=== PATIENT | male | born 1980 | race Caucasian/White ===

== ENCOUNTER 2017-03-16 19:30 | Emergency (ER) | payer OTHER ==
[2017-03-16 19:42] VITALS: TEMP 98.6; BMI 29.0
--- NOTE | 2017-03-16 21:08 | PDOC ---
History of Present Illness - General History Source: Patient <Milton Banegas - Last Filed: 03/16/17 22:53> - General History Source: Patient, Old Records Exam Limitations: No Limitations - History of Present Illness Initial Comments: 03/16/17 21:22 The patient is a 36 year old male with no significant past medical history, who presents to the emergency department today with throat pain for several weeks. The patient notes that when he swallows he feels like his head is squeezing and like he needs to vomit. He also notes that when he eats he feels like food gets stuck but denies any choking episodes. PAST MEDICAL HISTORY: No significant history reported PAST SURGICAL HISTORY: No significant history reported FAMILY HISTORY: No pertinent history reported SOCIAL HISTORY: None reported ALLERGIES: As per nursing notes MEDICATIONS: Reviewed <Leif Henderson - Last Filed: 03/16/17 22:58> - General Chief Complaint: Nausea/Vomiting Stated Complaint: NAUSEA/VOMITING Time Seen by Provider: 03/16/17 19:36 Past History - Past Medical History GI Disorders: Yes - Psycho/Social/Smoking Cessation Hx Anxiety: No Suicidal Ideation: No Smoking Status: Yes Smoking History: Never smoked Have you smoked in the past 12 months: No Number of Cigarettes Smoked Daily: 0 Hx Alcohol Use: No Substance Use Type: None <Milton Banegas - Last Filed: 03/16/17 22:53> <Leif Henderson - Last Filed: 03/16/17 22:58> - Past Medical History Allergies/Adverse Reactions: Allergies Allergy/AdvReac Type Severity Reaction Status Date / Time No Known Allergies Allergy Verified 03/16/17 19:39 Home Medications: Ambulatory Orders Ondansetron [Zofran *Odt*] 4 mg SL TID #30 od.tablet 03/16/17 Pantoprazole Sodium [Protonix] 40 mg PO DAILY 03/16/17 Review of Systems - Review of Systems Able to Perform ROS?: Yes Comments:: 03/16/17 21:22 CONSTITUTIONAL: Absent: fever, chills, diaphoresis, generalized weakness, malaise, loss of appetite HEENT: Present: Throat pain, difficulty swallowing. Absent: rhinorrhea, nasal congestion, throat swelling, mouth swelling, ear pain , eye pain, visual Changes CARDIOVASCULAR: Absent: chest pain, syncope, palpitations, irregular heart rate, lightheadedness , peripheral edema RESPIRATORY: Absent: cough, shortness of breath, dyspnea with exertion, orthopnea, wheezing, stridor, hemoptysis GASTROINTESTINAL: Absent: abdominal pain, abdominal distension, nausea, vomiting, diarrhea, constipation, melena, hematochezia GENITOURINARY: Absent: dysuria, frequency, urgency, hesitancy, hematuria, flank pain, genital pain MUSCULOSKELETAL: Absent: myalgia, arthralgia, joint swelling SKIN: Absent: rash, itching, pallor HEMATOLOGIC/IMMUNOLOGIC: Absent: easy bleeding, easy bruising, lymphadenopathy, frequent infections ENDOCRINE: Absent: unexplained weight gain, unexplained weight loss, heat intolerance, cold intolerance NEUROLOGIC: Present: Head squeezing Absent: Focal weakness or paresthesias, dizziness, unsteady gait, seizure, mental status changes, bladder or bowel incontinence PSYCHIATRIC: Absent: anxiety, depression, suicidal or homicidal ideation, hallucinations. <Leif Henderson - Last Filed: 03/16/17 22:58> *Physical Exam - Vital Signs Last Vital Signs Temp Pulse Resp BP Pulse Ox 98.6 F 78 18 126/78 99 03/16/17 19:41 03/16/17 19:41 03/16/17 19:41 03/16/17 19:41 03/16/17 19:41 <Milton Banegas - Last Filed: 03/16/17 22:53> - Vital Signs Last Vital Signs Temp Pulse Resp BP Pulse Ox 98.6 F 78 18 126/78 99 03/16/17 19:41 03/16/17 19:41 03/16/17 19:41 03/16/17 19:41 03/16/17 19:41 - Physical Exam Comments: 03/16/17 21:23 GENERAL: Well developed, well nourished. Awake and alert. In no acute distress. HEENT: (+) Normocephalic, atraumatic. PERRLA, EOMI. No conjunctival pallor. Sclerae are non-icteric.Mild erythema of posterior oropharynx NECK: Supple. Full ROM. No JVD. Carotid pulses 2+ and symmetric, without bruits. No thyromegaly. No lymphadenopathy. CARDIOVASCULAR: Regular rate and rhythm. No murmurs, rubs, or gallops. Distal pulses are 2+ and symmetric. PULMONARY: No evidence of respiratory distress. Lungs clear to auscultation bilaterally. No wheezing, rales or rhonchi. ABDOMINAL: Soft. Non-tender. Non-distended. No rebound or guarding. No organomegaly. Normoactive bowel sounds. MUSCULOSKELETAL Normal range of motion at all joints. No bony deformities or tenderness. No CVA tenderness. EXTREMITIES: No cyanosis. No clubbing. No edema. No calf tenderness. SKIN: Warm and dry. Normal capillary refill. No rashes. No jaundice. NEUROLOGICAL: Alert, awake, appropriate. Cranial nerves 2-12 intact. No deficits to light touch and temperature in face, upper extremities and lower extremities. No motor deficits in the in face, upper extremities and lower extremities. Normoreflexic in the upper and lower extremities. Normal speech. Toes are downgoing bilaterally. Gait is normal without ataxia. PSYCHIATRIC: Cooperative. Good eye contact. Appropriate mood and affect. <Leif Henderson - Last Filed: 03/16/17 22:58> ED Treatment Course - RADIOLOGY Radiograph Interpretation: 03/16/17 22:51 EXAM#: TYPE/EXAM: RESULT: [id number] CT/HEAD CT WITHOUT CONTRAST Cranial CT without contrast Clinical information: dizziness No intracranial hemorrhage is seen. There is no discrete infarct within the limitations of CT. No obvious mass lesion is noted on noncontrast imaging. A 2 mm calcification is seen along the right frontal lobe which is probably subarachnoid in location consistent most suggestive of postinflammatory/postinfectious change. There is no extra- axial fluid collection. The ventricles and cisterns appear unremarkable. The mastoid air cells and partially imaged paranasal sinuses demonstrate no opacification or Impression: No CT evidence of acute intracranial pathology. A small right frontal calcification is seen probably on a postinflammatory/ postinfectious basis. Reported By: Deion Rivera MD 03/16/17 2237 03/16/17 22:57 EXAM: CT SOFT TISSUE NECK. Impression: Official report pending. <Leif Henderson - Last Filed: 03/16/17 22:58> Medical Decision Making - Medical Decision Making 03/16/17 22:57 Dr. Banegas: The scribe's documentation has been prepared under my direction and personally reviewed by me in its entirery. I confirm that the note above accurately reflects all work, treatment, procedures, and medical decision making performed by me. <Milton Banegas - Last Filed: 03/16/17 22:53> *DC/Admit/Observation/Transfer - Discharge Dispostion Admit: No <Milton Banegas - Last Filed: 03/16/17 22:53> - Attestations Scribe Attestion: 03/16/17 21:23 Documentation prepared by Leif Henderson, acting as medical coding auditor for Milton Banegas DO. <Leif Henderson - Last Filed: 03/16/17 22:58> Diagnosis at time of Disposition: Dysphagia - Discharge Dispostion Disposition: HOME Condition at time of disposition: Stable - Prescriptions Prescriptions: Ondansetron [Zofran *Odt*] 4 mg SL TID #30 od.tablet - Referrals Referrals: Jaiden Junior MD [Staff Physician] - - Patient Instructions Printed Discharge Instructions: DI for Nausea -- Adult, DI for Vomiting -- Adult Additional Instructions: Please follow up with the GI specialist for an endoscopy. Take medication as directed. Print Language: IRANIAN
[2017-03-16 23:05] VITALS: BP 121/71; PULSE 62
== END 2017-03-16 23:04 | disposition home or self-care (01) ==
LOC: JER 19:30
DX: R13.19 Other dysphagia (principal)
CPT/HCPCS: 70360-TC; 70450-TC; 99282-25

== ENCOUNTER 2017-09-22 00:32 | Emergency (ER) | payer OTHER ==
[2017-09-22 00:48] VITALS: BP 122/82; PULSE 94; TEMP 98.6; BMI 29.6
--- NOTE | 2017-09-22 01:02 | PDOC ---
History of Present Illness - General Chief Complaint: Pain, Acute Stated Complaint: ABD PAIN Time Seen by Provider: 09/22/17 00:38 History Source: Patient Exam Limitations: No Limitations - History of Present Illness Initial Comments: 09/22/17 01:09 Patient is a 37-year-old male with past medical history of GERD, who presents emergency department tonight complaining of left-sided abdominal/flank pain. Patient states symptoms began on Thursday. He states that the pain is colicky in nature. It radiates down to his left groin. Admits to subjective fevers, chills, nausea and vomiting. He has not taken any medication for his pain. This has never happened to him before. Denies cold-like symptoms, shortness of breath , chest pain, frequency, urgency, hematuria, diarrhea, hematemesis. Past History - Travel Traveled outside of the country in the last 30 days: No Close contact w/someone who was outside of country & ill: No - Past Medical History Allergies/Adverse Reactions: Allergies Allergy/AdvReac Type Severity Reaction Status Date / Time No Known Allergies Allergy Verified 09/22/17 00:47 Home Medications: Ambulatory Orders Ondansetron [Zofran *Odt*] 4 mg SL TID #30 od.tablet 03/16/17 Pantoprazole Sodium [Protonix] 40 mg PO DAILY 03/16/17 GI Disorders: Yes - Suicide/Smoking/Psychosocial Hx Smoking Status: Yes Smoking History: Never smoked Have you smoked in the past 12 months: No Number of Cigarettes Smoked Daily: 0 Information on smoking cessation initiated: No Hx Alcohol Use: No Drug/Substance Use Hx: No Substance Use Type: None Review of Systems - Review of Systems Able to Perform ROS?: Yes Comments:: 09/22/17 01:21 CONSTITUTIONAL: Present: subjective fevers, chills Absent: diaphoresis, generalized weakness, malaise, loss of appetite HEENT: Absent: rhinorrhea, nasal congestion, throat pain, throat swelling, difficulty swallowing, mouth swelling, ear pain, eye pain, visual Changes CARDIOVASCULAR: Absent: chest pain, loss of consciousness, palpitations, irregular heart rate, peripheral edema RESPIRATORY: Absent: cough, shortness of breath, dyspnea with exertion, orthopnea, wheezing, stridor, hemoptysis GASTROINTESTINAL: Present: LLQ pain, flank pain, nausea/vomiting. Absent: abdominal distension, diarrhea, constipation, melena, hematochezia GENITOURINARY: Absent: dysuria, frequency, urgency, hesitancy, hematuria, flank pain, genital pain MUSCULOSKELETAL: Absent: myalgia, arthralgia, joint swelling SKIN: Absent: rash, itching, pallor HEMATOLOGIC/IMMUNOLOGIC: Absent: easy bleeding, easy bruising, lymphadenopathy, frequent infections ENDOCRINE: Absent: unexplained weight gain, unexplained weight loss, heat intolerance, cold intolerance NEUROLOGIC: Absent: headache, focal weakness or paresthesias, dizziness, unsteady gait, seizure, mental status changes, bladder or bowel incontinence PSYCHIATRIC: Absent: anxiety, depression, suicidal or homicidal ideation, hallucinations. Is the patient limited Ghanaian proficient: No *Physical Exam - Vital Signs Last Vital Signs Temp Pulse Resp BP Pulse Ox 98.6 F 94 H 18 122/82 98 09/22/17 00:47 09/22/17 00:47 09/22/17 00:47 09/22/17 00:47 09/22/17 00:47 - Physical Exam Comments: 09/22/17 01:22 GENERAL: Well developed, well nourished. Awake and alert x3. In mild distress laying on bed. Breathing easily, not using accessory muscles to breathe. HEENT: Normocephalic, atraumatic. PERRLA, EOMI. No conjunctival pallor. Sclera are non- icteric. Moist mucous membranes. Oropharynx is clear. NECK: Supple. Full ROM. No JVD. Carotid pulses 2+ and symmetric, without bruits. No thyromegaly. No lymphadenopathy. CARDIOVASCULAR: Regular rate and rhythm. No murmurs, rubs, or gallops. Distal pulses are 2+ and symmetric. PULMONARY: No evidence of respiratory distress. Lungs clear to auscultation bilaterally. No wheezing, rales or rhonchi. ABDOMINAL: TTP of the LLQ, L flank. Soft. Non-distended. No rebound or guarding. No organomegaly. Normoactive bowel sounds. MUSCULOSKELETAL Normal range of motion at all joints. No bony deformities or tenderness. No CVA tenderness. EXTREMITIES: No cyanosis. No clubbing. No edema. No calf tenderness. SKIN: Warm and dry. Normal capillary refill. No rashes. No jaundice. NEUROLOGICAL: Alert, awake, appropriate. Cranial nerves 2-12 intact. No deficits to light touch and temperature in face, upper extremities and lower extremities. No motor deficits in the in face, upper extremities and lower extremities. Normoreflexic in the upper and lower extremities. Normal speech. Toes are down- going bilaterally. Gait is normal without ataxia. PSYCHIATRIC: Cooperative. Good eye contact. Appropriate mood and affect. ED Treatment Course - LABORATORY CBC & Chemistry Diagram: 09/22/17 02:00 09/22/17 02:00 Medical Decision Making - Medical Decision Making 09/22/17 02:21 CT exam with no acute findings or stones. Large amount of stool on exam. *DC/Admit/Observation/Transfer Diagnosis at time of Disposition: Abdominal pain Qualifiers: Abdominal location: left lower quadrant Qualified Code(s): R10.32 - Left lower quadrant pain - Discharge Dispostion Disposition: HOME Condition at time of disposition: Good Admit: No - Referrals Referrals: Genaro Krishnan MD [Staff Physician] - Dylan mEery MD [Staff Physician] - - Patient Instructions Printed Discharge Instructions: DI for Abdominal Pain-Adult Additional Instructions: Your CAT scan today was negative for kidney stones. Your blood work was normal. Your urine did not show an infection. Please drink plenty of fluids. He may take Tylenol or Motrin as needed for your abdominal pain. Please follow-up with your primary care doctor this week. If you do not have a primary care doctor a referral has been provided for you. If your stomach pain does not go away please follow-up with Dr. Emery. Return to the emergency department if you have worsening pain, fevers, chills, nausea, vomiting, or any changes in your symptoms. Laguna tomografa computarizada hoy fue negativa para clculos renales. Laguna anlisis de nat fue normal. Tu orina no mostr ashley infeccin. Por favor alice muchos l quidos. l puede jeffrey Tylenol o Motrin segn sea necesario para laguna dolor abdominal. Por favor michael un seguimiento con laguna mdico de atencin primaria esta semana. Si no tiene un mdico de atencin primaria, se le lan proporcionado ashley referencia. Si laguna dolor de estmago no desaparece, michael un seguimiento con el Dr. Emery. Regrese al departamento de emergencias si tiene un empeoramiento del dolor, fiebre, escalofros, nuseas, vmitos o cualquier cambio en nellie sntomas. Print Language: OCCITAN - Post Discharge Activity Forms/Work/School Notes: Back to Work
[2017-09-22] MEDS ORDERED: SODIUM CHLORIDE 1,000 ML IV STA (01:03)
[2017-09-22] MEDS ORDERED: ONDANSETRON 4 MG/2 ML VIAL IVPUSH ONE (01:03)
[2017-09-22] MEDS ORDERED: KETOROLAC TROMETHAMINE 30 MG/1 ML VIAL IVPUSH ONE (01:04)
[2017-09-22] MEDS ORDERED: ONDANSETRON 4 MG/2 ML VIAL ONE (02:12)
[2017-09-22] MEDS ORDERED: KETOROLAC TROMETHAMINE 30 MG/1 ML VIAL ONE (02:12)
[2017-09-22 02:31] LABS: BASO % 0.4 % (0-2.0); EOS % 4.9 % (0-4.5); HEMATOCRIT 44.8 % (35.4-49); HEMOGLOBIN 14.9 GM/dL (11.7-16.9); LYMPH % 22.7 % (8-40); MCH 28.3 pg (25.7-33.7); MCHC 33.2 g/dl (32.0-35.9); MEAN CELL VOLUME 85.4 fl (80-96); MEAN PLT VOLUME 8.6 fl (7.5-11.1); MONO % 9.8 % (3.8-10.2); NEUT % 62.2 % (42.8-82.8); PLATELET COUNT 244 K/MM3 (134-434); RBC 5.25 M/mm3 (4.00-5.60); RDW 13.7 % (11.9-15.9); WHITE BLOOD COUNT 9.1 K/mm3 (4.0-10.0)
[2017-09-22 02:43] LABS: INR 0.95 (0.82-1.09); PROTHROMBIN TIME (PATIENT) 10.7 SEC (9.98-11.88)
[2017-09-22 03:08] LABS: ALBUMIN 3.9 g/dl (3.4-5.0); ALK PHOS 126 U/L (45-117); ANION GAP 10 (8-16); BILIRUBIN,TOTAL 0.2 mg/dL (0.2-1.0); BLOOD UREA NITROGEN 9 mg/dL (7-18); CALCIUM 8.5 mg/dL (8.5-10.1); CHLORIDE 107 mmol/L (98-107); CO2 23 mmol/L (21-32); CREATININE 0.7 mg/dL (0.7-1.3); GLUCOSE,RANDOM 122 mg/dL (74-106); SGOT/AST 22 U/L (15-37); SGPT/ALT 36 U/L (12-78); SODIUM 140 mmol/L (136-145)
[2017-09-22 04:11] LABS: URINE APPEARANCE CLEAR; URINE BILIRUBIN NEGATIVE (NEGATIVE); URINE BLOOD NEGATIVE (NEGATIVE); URINE COLOR LTYELLOW; URINE GLUCOSE (UA) NEGATIVE (NEGATIVE); URINE KETONE NEGATIVE (NEGATIVE); URINE LEUK ESTERASE NEGATIVE (NEGATIVE); URINE NITRITE NEGATIVE (NEGATIVE); URINE PROTEIN NEGATIVE (NEGATIVE); URINE UROBILINOGEN NEGATIVE mg/dL (0.2-1.0)
== END 2017-09-22 05:05 | disposition home or self-care (01) ==
LOC: JER 00:32
PROC: 3E0337Z Introduction of Electrolytic and Water Balance Substance into Peripheral Vein, Percutaneous Approach (ICD-10-PCS; principal; 2017-09-22)
PROC: 3E0333Z Introduction of Anti-inflammatory into Peripheral Vein, Percutaneous Approach (ICD-10-PCS; 2017-09-22)
PROC: 3E033GC Introduction of Other Therapeutic Substance into Peripheral Vein, Percutaneous Approach (ICD-10-PCS; 2017-09-22)
DX: R10.32 Left lower quadrant pain (principal)
CPT/HCPCS: 36415; 74176; 80053; 81003; 83690; 85025; 85610; 87086; 96361; 96374; 96375; 99283-25

== ENCOUNTER 2018-09-16 23:24 | Emergency (ER) | payer OTHER ==
[2018-09-17 00:19] VITALS: BP 125/89; PULSE 81; TEMP 98.1; BMI 30.7
[2018-09-17] MEDS ORDERED: FAMOTIDINE 20 MG/50 ML IVPB 20 MG/50 ML MG IVPB ONE (01:01)
--- NOTE | 2018-09-17 01:01 | PDOC ---
History of Present Illness - General Chief Complaint: Nausea/Vomiting Stated Complaint: NAUSEA/VOMITING Time Seen by Provider: 09/17/18 00:43 History Source: Patient - History of Present Illness Initial Comments: 09/17/18 02:54 38 year old with abdominal pain epigastric / left sided pain x 2 years, patient reports seeing GI for this and is prescribed protonix. patient reports that he frequently vomiting after his meal due to intolerance. patient denies chest pain, shortness of breathing, diarrhea, fever chills,. pmhx. Chronic abdominal pain Past History - Past Medical History Allergies/Adverse Reactions: Allergies Allergy/AdvReac Type Severity Reaction Status Date / Time No Known Allergies Allergy Verified 09/17/18 00:14 Home Medications: Ambulatory Orders Ondansetron [Zofran *Odt*] 4 mg SL TID #30 od.tablet 03/16/17 Pantoprazole Sodium [Protonix] 40 mg PO DAILY 03/16/17 COPD: No GI Disorders: Yes - Immunization History Immunization Up to Date: Yes - Suicide/Smoking/Psychosocial Hx Smoking Status: Yes Smoking History: Never smoked Have you smoked in the past 12 months: No Number of Cigarettes Smoked Daily: 0 Information on smoking cessation initiated: No Hx Alcohol Use: No Drug/Substance Use Hx: No Substance Use Type: None Review of Systems - Review of Systems Able to Perform ROS?: Yes Is the patient limited Namibian proficient: No ABD/GI: Yes: Nausea, Abdominal cramping *Physical Exam - Vital Signs Last Vital Signs Temp Pulse Resp BP Pulse Ox 98.1 F 81 18 125/89 98 09/16/18 23:30 09/16/18 23:30 09/16/18 23:30 09/16/18 23:30 09/16/18 23:30 - Physical Exam General Appearance: Yes: Appropriately Dressed Respiratory/Chest: positive: Lungs Clear, Normal Breath Sounds Gastrointestinal/Abdominal: positive: Normal Bowel Sounds, Tender (LLQ), Soft Musculoskeletal: negative: CVA Tenderness Extremity: positive: Normal Capillary Refill, Normal Inspection Integumentary: positive: Normal Color, Dry, Warm Neurologic: positive: Fully Oriented, Alert, Normal Mood/Affect Moderate Sedation - Procedure Monitoring Vital Signs: Procedure Monitoring Vital Signs Temperature 98.1 F 09/16/18 23:30 Pulse Rate 81 09/16/18 23:30 Respiratory Rate 18 09/16/18 23:30 Blood Pressure 125/89 09/16/18 23:30 O2 Sat by Pulse Oximetry (%) 98 09/16/18 23:30 ED Treatment Course - LABORATORY CBC & Chemistry Diagram: 09/17/18 01:24 09/17/18 01:24 Medical Decision Making - Medical Decision Making 09/17/18 03:05 patient is c/o left flank pain radiating to left abdomen. will spiral CT r/o renal stones. UA negative 09/17/18 03:[address] L: Negative for right or left urinary tract stone or obstruction. No bowel obstruction or inflammation. Negative for diverticulitis or colitis. Normal appendix. There is contrast in the colon from prior contrast study. Normal liver. No obvious gallbladder abnormalities. Normal spleen. Normal pancreas. *DC/Admit/Observation/Transfer Diagnosis at time of Disposition: Abdominal pain Qualifiers: Abdominal location: left lower quadrant Qualified Code(s): R10.32 - Left lower quadrant pain - Discharge Dispostion Disposition: HOME - Referrals Referrals: Xu Rivas MD [Primary Care Provider] - Jaiden Junior MD [Staff Physician] - Call tomorrow - Patient Instructions Printed Discharge Instructions: DI for Nausea -- Adult Additional Instructions: drink plenty of fluids follow up with your human resources trainee as soon as possible - Post Discharge Activity
[2018-09-17] MEDS ORDERED: ONDANSETRON 4 MG/2 ML VIAL ONE (01:15)
[2018-09-17] MEDS ORDERED: ONDANSETRON 4 MG/2 ML VIAL IVPUSH ONE (01:15)
[2018-09-17 01:35] LABS: BASO % 0.4 % (0-2.0); EOS % 4.3 % (0-4.5); HEMATOCRIT 44.8 % (35.4-49); HEMOGLOBIN 15.5 GM/dL (11.7-16.9); LYMPH % 39.5 % (8-40); MCH 29.6 pg (25.7-33.7); MCHC 34.7 g/dl (32.0-35.9); MEAN CELL VOLUME 85.2 fl (80-96); MEAN PLT VOLUME 8.6 fl (7.5-11.1); MONO % 8.4 % (3.8-10.2); NEUT % 47.4 % (42.8-82.8); PLATELET COUNT 243 K/MM3 (134-434); RBC 5.25 M/mm3 (4.00-5.60); RDW 13.9 % (11.9-15.9); WHITE BLOOD COUNT 9.1 K/mm3 (4.0-10.0)
[2018-09-17 01:37] LABS: URINE APPEARANCE CLEAR; URINE BILIRUBIN NEGATIVE (<2.0 mg/dL); URINE COLOR LTYELLOW; URINE GLUCOSE (UA) NEGATIVE (NEGATIVE); URINE KETONE NEGATIVE (NEGATIVE); URINE LEUK ESTERASE NEGATIVE (NEGATIVE); URINE NITRITE NEGATIVE (NEGATIVE); URINE PROTEIN NEGATIVE (NEGATIVE); URINE UROBILINOGEN NEGATIVE mg/dL (0.2-1.0)
[2018-09-17] MEDS ORDERED: ACETAMINOPHEN 325 MG TABLET (FP) PO ONE (02:08)
[2018-09-17] MEDS ORDERED: SUCRALFATE 1 GM TABLET (FP) PO ONE (02:15)
[2018-09-17 02:26] LABS: ALBUMIN 4.3 g/dl (3.4-5.0); ALK PHOS 115 U/L (45-117); ANION GAP 5 MMOL/L (8-16); BILIRUBIN,TOTAL 0.4 mg/dL (0.2-1); BLOOD UREA NITROGEN 10 mg/dL (7-18); CALCIUM 8.6 mg/dL (8.5-10.1); CHLORIDE 106 mmol/L (98-107); CO2 29 mmol/L (21-32); CREATININE 0.9 mg/dL (0.55-1.3); GLUCOSE,RANDOM 97 mg/dL (74-106); LIPASE 149 U/L (73-393); SGOT/AST 20 U/L (15-37); SGPT/ALT 33 U/L (13-61); SODIUM 140 mmol/L (136-145); TOT PROT 7.4 g/dl (6.4-8.2)
[2018-09-17] MEDS ORDERED: ACETAMINOPHEN 325 MG TABLET (FP) ONE (02:33)
[2018-09-17] MEDS ORDERED: SUCRALFATE 1 GM TABLET (FP) ONE (02:34)
--- NOTE | 2018-09-17 09:39 | EKG ---
Test Reason : Blood Pressure : / mmHG Vent. Rate : 071 BPM Atrial Rate : 071 BPM P-R Int : 174 ms QRS Dur : 084 ms QT Int : 382 ms P-R-T Axes : 062 008 026 degrees QTc Int : 415 ms NORMAL SINUS RHYTHM NORMAL ECG NO PREVIOUS ECGS AVAILABLE Confirmed by KENNETH SUN, SHITAL ([id number]) on 09/17/2018 9:39:04 AM Referred By: Confirmed By:SHITAL COOPER MD
== END 2018-09-17 04:09 | disposition home or self-care (01) ==
LOC: JER 23:24
PROC: 3E033GC Introduction of Other Therapeutic Substance into Peripheral Vein, Percutaneous Approach (ICD-10-PCS; principal; 2018-09-16)
DX: R10.32 Left lower quadrant pain (principal); R11.2 Nausea with vomiting, unspecified
CPT/HCPCS: 36415; 74176; 80053; 81003; 83690; 85025; 93005; 93010; 99281-25

== ENCOUNTER 2018-11-17 19:27 | Emergency (ER) | payer OTHER ==
[2018-11-17 19:41] VITALS: BP 129/88; PULSE 78; TEMP 98.2; BMI 29.9
--- NOTE | 2018-11-17 19:42 | PDOC ---
Rapid Medical Evaluation Time Seen by Provider: 11/17/18 19:37 Medical Evaluation: Allergies Allergy/AdvReac Type Severity Reaction Status Date / Time No Known Allergies Allergy Verified 09/17/18 00:14 I have performed a brief in-person evaluation of this patient. The patient presents with a chief complaint of:Hematuria x 2 weeks, no dysuria otherwise. Also reports possible L flank pain of unclear duration. Seen by his pmd Thursday w/ neg urine test per pt. States he had hematuria yrs ago that self resolved. No h/o renal stone . Non-smoker. No unexplained weight loss Pertinent physical exam findings:Stable and well mich I have ordered the following:labs/ua The patient will proceed to the ED for further evaluation. Discharge Disposition - Diagnosis Hematuria Qualifiers: Hematuria type: gross Qualified Code(s): R31.0 - Gross hematuria - Referrals - Patient Instructions - Post Discharge Activity
[2018-11-17 20:08] LABS: BASO % 0.3 % (0-2.0); EOS % 2.6 % (0-4.5); HEMATOCRIT 45.9 % (35.4-49); HEMOGLOBIN 15.7 GM/dL (11.7-16.9); LYMPH % 33.1 % (8-40); MCH 29.7 pg (25.7-33.7); MCHC 34.3 g/dl (32.0-35.9); MEAN CELL VOLUME 86.8 fl (80-96); MEAN PLT VOLUME 8.8 fl (7.5-11.1); PLATELET COUNT 227 K/MM3 (134-434); RBC 5.28 M/mm3 (4.00-5.60); RDW 13.6 % (11.9-15.9); WHITE BLOOD COUNT 11.2 K/mm3 (4.0-10.0)
[2018-11-17 20:33] LABS: URINE APPEARANCE CLOUDY; URINE BILIRUBIN NEGATIVE (<2.0 mg/dL); URINE COLOR AMBER; URINE GLUCOSE (UA) NEGATIVE (NEGATIVE); URINE KETONE NEGATIVE (NEGATIVE); URINE LEUK ESTERASE NEGATIVE (NEGATIVE); URINE NITRITE NEGATIVE (NEGATIVE); URINE PROTEIN 2+ (NEGATIVE); URINE UROBILINOGEN NEGATIVE mg/dL (0.2-1.0)
[2018-11-17 20:34] LABS: ALBUMIN 4.5 g/dl (3.4-5.0); ALK PHOS 106 U/L (45-117); ANION GAP 7 MMOL/L (8-16); BILIRUBIN,TOTAL 0.3 mg/dL (0.2-1); BLOOD UREA NITROGEN 17 mg/dL (7-18); CALCIUM 9.2 mg/dL (8.5-10.1); CHLORIDE 109 mmol/L (98-107); CO2 25 mmol/L (21-32); CREATININE 0.7 mg/dL (0.55-1.3); GLUCOSE,RANDOM 98 mg/dL (74-106); POTASSIUM 3.9 mmol/L (3.5-5.1); SGOT/AST 23 U/L (15-37); SGPT/ALT 43 U/L (13-61); SODIUM 141 mmol/L (136-145); TOT PROT 7.6 g/dl (6.4-8.2)
--- NOTE | 2018-11-17 20:45 | PDOC ---
*Physical Exam - Vital Signs Last Vital Signs Temp Pulse Resp BP Pulse Ox 98.2 F 78 20 129/88 97 11/17/18 19:38 11/17/18 19:38 11/17/18 19:38 11/17/18 19:38 11/17/18 19:38 ED Treatment Course - LABORATORY CBC & Chemistry Diagram: 11/17/18 19:48 11/17/18 19:48 - ADDITIONAL ORDERS Additional order review: Laboratory Results 11/17/18 19:48 Sodium 141 Potassium 3.9 Chloride 109 H Carbon Dioxide 25 Anion Gap 7 L BUN 17 Creatinine 0.7 Creat Clearance w eGFR > 60 Random Glucose 98 Calcium 9.2 Total Bilirubin 0.3 AST 23 ALT 43 Alkaline Phosphatase 106 Total Protein 7.6 Albumin 4.5 11/17/18 19:48 RBC 5.28 MCV 86.8 MCHC 34.3 RDW 13.6 MPV 8.8 Neutrophils % 55.0 Lymphocytes % 33.1 Monocytes % 9.0 Eosinophils % 2.6 Basophils % 0.3 Medical Decision Making - Medical Decision Making 11/17/18 20:45 Patient seen by the advanced practice provider under my direct supervision. Ancillary testing reviewed as necessary. I agree with plan as outlined by the advanced practice provider. *DC/Admit/Observation/Transfer Diagnosis at time of Disposition: Hematuria Qualifiers: Hematuria type: gross Qualified Code(s): R31.0 - Gross hematuria - Discharge Dispostion Disposition: HOME Condition at time of disposition: Stable - Referrals Referrals: Andi Chinchilla MD [Staff Physician] - Xu Rivas MD [Primary Care Provider] - - Patient Instructions Additional Instructions: Your CAT scan today was normal. Your laboratory testing was normal. Continue Levaquin as previously prescribed. You have been given a number for urologist. If symptoms continue please call for reevaluation. Make an appointment to primary doctor for reevaluation. Return to emergency department for any new or worsening symptoms. - Post Discharge Activity
[2018-11-17 20:51] LABS: URINE MUCUS MANY; YEAST MANY
--- NOTE | 2018-11-17 21:08 | PDOC ---
History of Present Illness - General Chief Complaint: Hematuria Stated Complaint: UTI BACK PAIN Time Seen by Provider: 11/17/18 19:37 History Source: Patient Exam Limitations: No Limitations - History of Present Illness Travel History: No Initial Comments: 11/17/18 21:09 HISTORY OF PRESENT ILLNESS: This is a 38-year-old male with past medical history of headaches presents emergency department for evaluation of left flank pain with hematuria which is been ongoing for the past 3 days. Patient was seen and evaluated by his primary doctor on Thursday and was placed on Levaquin 500 mg daily for 2 weeks. Patient reports the pain is been constant today starting in his left flank radiating to his abdomen and into the left testicle. He describes the pain as sharp and rates it 8/10. Patient called his primary doctor and was told to come to the emergency department for reevaluation for potential kidney stone. No recent travel or sick contacts. PAST MEDICAL HISTORY: headaches SURGICAL HISTORY: Denies ALLERGIES: No known drug allergies REVIEW OF SYSTEMS General/Constitutional: Denies fever or chills. Denies weakness, weight change. HEENT: Denies change in vision. Denies ear pain or discharge. Denies sore throat. Cardiovascular: Denies chest pain or shortness of breath. Respiratory: Denies cough, wheezing, or hemoptysis. Gastrointestinal: Denies nausea, vomiting, diarrhea or constipation. Denies rectal bleeding. Genitourinary: see HPI Musculoskeletal: Denies joint or muscle swelling or pain. Denies neck or back pain. Skin and breasts: Denies rash or easy bruising. Neurologic: Denies headache, vertigo, loss of consciousness, or loss of sensation. Psychiatric: Denies depression or anxiety. Endocrine: Denies increased thirst. Denies abnormal weight change. Hematologic/Lymphatic: Denies anemia, easy bleeding, or history of blood clots. Allergic/Immunologic: Denies hives or skin allergy. Denies latex allergy. PHYSICAL EXAM General Appearance: Well-appearing, appropriately dressed. No apparent distress , no intoxication. HEENT: EOMI, PERRLA, normal ENT inspection, normal voice, TMs normal, pharynx normal. No conjunctival pallor. No photophobia, scleral icterus. Neck: Supple. Trachea midline. No tenderness, rigidity, carotid bruit, stridor , lymphadenopathy, or thyromegaly. Respiratory/Chest: Lungs CTAB. No shortness of breath, chest tenderness, respiratory distress, accessory muscle use. No crackles, rales, rhonchi, stridor , wheezing, dullness Cardiovascular: RRR. S1, S2. No JVD, murmur, bradycardia, tachycardia. Vascular Pulses: Dorsalis-Pedis (R): 2+, Dorsalis-Pedis (L): 2+ Gastrointestinal/Abdominal: Normal bowel sounds. Abdomen soft, non-distended. No tenderness or rebound tenderness. No organomegaly, pulsatile mass, guarding, hernia, hepatomegaly, splenomegaly. Lymphatic: No adenopathy, tenderness. Musculoskeletal/Extremities: Normal inspection. FROM of all extremities, normal capillary refill. Pelvis Stable. Left CVA tenderness. No tenderness to extremities, pedal edema, swelling, erythema or deformity. Integumentary: Appropriate color, dry, warm. No cyanosis, erythema, jaundice or rash Neurologic: legal compliance officer II-XII intact. Fully oriented, alert. Appropriate mood/affect. Motor strength 5/5. No appreciable EOM palsy, facial droop or sensory deficit. Past History - Past Medical History Allergies/Adverse Reactions: Allergies Allergy/AdvReac Type Severity Reaction Status Date / Time No Known Allergies Allergy Verified 09/17/18 00:14 Home Medications: Ambulatory Orders Ondansetron [Zofran *Odt*] 4 mg SL TID #30 od.tablet 03/16/17 Pantoprazole Sodium [Protonix] 40 mg PO DAILY 03/16/17 COPD: No GI Disorders: Yes - Immunization History Immunization Up to Date: Yes - Suicide/Smoking/Psychosocial Hx Smoking Status: Yes Smoking History: Never smoked Have you smoked in the past 12 months: No Number of Cigarettes Smoked Daily: 0 Information on smoking cessation initiated: No Hx Alcohol Use: No Drug/Substance Use Hx: No Substance Use Type: None *Physical Exam - Vital Signs Last Vital Signs Temp Pulse Resp BP Pulse Ox 98.2 F 78 20 129/88 97 11/17/18 19:38 11/17/18 19:38 11/17/18 19:38 11/17/18 19:38 11/17/18 19:38 Moderate Sedation - Procedure Monitoring Vital Signs: Procedure Monitoring Vital Signs Temperature 98.2 F 11/17/18 19:38 Pulse Rate 78 11/17/18 19:38 Respiratory Rate 20 11/17/18 19:38 Blood Pressure 129/88 11/17/18 19:38 O2 Sat by Pulse Oximetry (%) 97 11/17/18 19:38 ED Treatment Course - LABORATORY CBC & Chemistry Diagram: 11/17/18 19:48 11/17/18 19:48 - ADDITIONAL ORDERS Additional order review: Laboratory Results 11/17/18 11/17/18 19:48 19:40 Sodium 141 Potassium 3.9 Chloride 109 H Carbon Dioxide 25 Anion Gap 7 L BUN 17 Creatinine 0.7 Creat Clearance w eGFR > 60 Random Glucose 98 Calcium 9.2 Total Bilirubin 0.3 AST 23 ALT 43 Alkaline Phosphatase 106 Total Protein 7.6 Albumin 4.5 Urine Color [place] Urine Appearance Cloudy Urine pH 6.0 Ur Specific [place] 1.027 Urine Protein 2+ H Urine Glucose (UA) Negative Urine Ketones Negative Urine Blood 3+ H Urine Nitrite Negative Urine Bilirubin Negative Urine Urobilinogen Negative Ur Leukocyte Esterase Negative Urine WBC (Auto) 183 Urine RBC (Auto) 5849 Urine Mucus Many Urine Yeast Many 11/17/18 19:48 RBC 5.28 MCV 86.8 MCHC 34.3 RDW 13.6 MPV 8.8 Neutrophils % 55.0 Lymphocytes % 33.1 Monocytes % 9.0 Eosinophils % 2.6 Basophils % 0.3 - RADIOLOGY Radiology Studies Ordered: Category Date Time Status SPIRAL- RENAL-STONE CT [CT] Stat CT Scan 11/17/18 21:07 Ordered Medical Decision Making - Medical Decision Making 11/17/18 21:10 A/P: 38-year-old male with hematuria and intermittent left flank pain for 3 days Left CVA tenderness present Labs collected in rapid medical evaluation are notable for WBC 11.7, Gross hematuria, and 2+ protein Spiral CT to rule out kidney stone 11/18/18 00:41 CT scan is read by imaging polymer materials consultant: Lung bases are clear. The visualized cardiac chambers are normal size and configuration. Normal unenhanced liver, gallbladder, pancreas, spleen, adrenal glands and kidneys. Stomach and abdominal wall and small bowels are normal. There is no aortic aneurysm. There is no retroperitoneal lymphadenopathy. Pelvic small and large bowel are normal. Urinary bladder prostate gland are normal. Pelvic free fluid is identified. There is no significant pelvic lymphadenopathy. I'll discharge home to continue Levaquin as previously prescribed. I'll give the patient a recommendation for urology follow-up. I discussed the physical exam findings, ancillary test results and final diagnoses with the patient. I answered all of the patient's questions. The patient was satisfied with the care received and felt comfortable with the discharge plan and treatment plan. The patient will call their primary care physician within 24 hours to arrange follow-up and will return to the Emergency Department with any new, persistent or worsening symptoms. *DC/Admit/Observation/Transfer Diagnosis at time of Disposition: Hematuria Qualifiers: Hematuria type: gross Qualified Code(s): R31.0 - Gross hematuria - Discharge Dispostion Disposition: HOME Condition at time of disposition: Stable Decision to Admit order: No - Referrals Referrals: Xu Rivas MD [Primary Care Provider] - Andi Chinchilla MD [Staff Physician] - - Patient Instructions Additional Instructions: Your CAT scan today was normal. Your laboratory testing was normal. Continue Levaquin as previously prescribed. You have been given a number for urologist. If symptoms continue please call for reevaluation. Make an appointment to primary doctor for reevaluation. Return to emergency department for any new or worsening symptoms. - Post Discharge Activity
== END 2018-11-18 01:12 | disposition home or self-care (01) ==
LOC: JER 19:27
DX: R31.0 Gross hematuria (principal)
CPT/HCPCS: 36415; 74176-TC; 80053; 81003; 81015; 85025; 87086; 87491; 87591; 99281-25